=== PATIENT | female | born 1945 | race Caucasian/White ===

== ENCOUNTER → 2017-11-23 | Outpatient (CLI) | payer MEDICARE, BC, OTHER ==
[~2017-11-23] MED LIST: ACCUPRIL10 MG PO; AMITRIPTYLINE25 MG PO; GABAPENTIN300 M1 PO; HCTZ 25MG25 MG PO; MASON NATURAL2000 IU PO; METANX 2.8 MG-21 TA1 PO; METFORMIN500 MG PO; MICRO-K 1010 MEQ PO; NORVASC 10MG10 MG PO; OYSCO 500500 M1 PO; PARLODEL2.5 MG PO; PREMARIN 0.60.625 MG PO; PRILOSEC 20MG20 MG PO; ROBINUL1 MG PO; SYNTHROID0.075 MG PO
== END ==
LOC: MC.RAD 09:14
DX: Z12.31 Encounter for screening mammogram for malignant neoplasm of breast (principal)

== ENCOUNTER → 2019-04-11 | Outpatient (CLI) | payer MEDICARE, OTHER | LOC: MC.RAD 15:28 | DX: Z12.31 Encounter for screening mammogram for malignant neoplasm of breast (principal) ==

== ENCOUNTER 2021-12-27 14:50 | Emergency (ER) | payer MEDICARE, OTHER ==
[~2021-12-27] VITALS: Ht 180.3 cm; Wt 79.5 kg
[2021-12-27 15:00] VITALS: BP 133/74; TEMP 97.5
[2021-12-27 16:40] VITALS: PULSE 82
== END 2021-12-27 16:47 | disposition home or self-care (01) ==
LOC: COL.ER 14:50
DX: Z04.3 Encounter for examination and observation following other accident (principal)

== ENCOUNTER 2023-02-10 10:25 | Emergency (ER) | payer MEDICARE, OTHER ==
[~2023-02-10] VITALS: Ht 149.9 cm; Wt 77.3 kg
[2023-02-10 10:29] VITALS: TEMP 98.1
[2023-02-10 12:11] VITALS: BP 141/73; PULSE 64
== END 2023-02-10 12:35 | disposition home or self-care (01) ==
LOC: COL.ER 10:25
DX: S09.90XA Unspecified injury of head, initial encounter (principal); S51.012A Laceration without foreign body of left elbow, initial encounter; S01.01XA Laceration without foreign body of scalp, initial encounter; Z23 Encounter for immunization; W18.30XA Fall on same level, unspecified, initial encounter; W22.09XA Striking against other stationary object, initial encounter; Y92.002 Bathroom of unspecified non-institutional (private) residence as the place of occurrence of the external cause

== ENCOUNTER 2023-12-10 14:50 | Emergency (ER) | payer MEDICARE, OTHER ==
[~2023-12-10] VITALS: Ht 149.9 cm; Wt 78.2 kg
[2023-12-10 14:57] VITALS: TEMP 98.5
[2023-12-10 16:00] LABS: BASO # 0.1 K/mm3 (0.0-0.2); BASO % 0.5 % (0.0-2.0); EOS # 0.2 K/mm3 (0.0-0.7); EOS % 1.8 % (0.0-4.0); GRAN # 5.8 K/mm3 (1.4-6.5); GRAN % 63.2 % (42.2-75.2); HEMATOCRIT 33.6 % (37.0-47.0); HEMOGLOBIN 11.6 g/dl (12.5-16.0); LYMPH # 2.6 K/mm3 (1.2-3.4); LYMPH % 28.2 % (20.0-51.0); MEAN CELL VOLUME 91 fl (80.0-100.0); MEAN CORPUSCULAR HEMOGLOBIN 31 pg (27-31); MEAN CORPUSCULAR HGB CONC 35 g/dl (33.0-37.0); MEAN PLATELET VOLUME 9.4 fl (7.4-10.4); MONO # 0.6 K/mm3 (0.1-0.6); PLATELET COUNT 225 K/mm3 (130-400); RED BLOOD COUNT 3.69 M/mm3 (4.10-5.30); REDCELL DISTRIBUTION WIDTH-CV 12.4 % (11.5-14.5)
[2023-12-10 16:19] LABS: ALBUMIN 3.5 g/dL (3.4-4.8); CALCIUM 9.6 mg/dL (8.4-10.2); CREATININE, serum 0.93 mg/dL (0.57-1.11); POTASSIUM 4.1 mEq/L (3.5-4.5); TOTAL PROTEIN 6.6 g/dl (6.2-8.1)
[2023-12-10 16:25] LABS: TROPONIN-I 0.015 ng/mL (0.00-0.033)
[2023-12-10 16:27] LABS: BILIRUBIN,TOTAL 0.4 mg/dL (0.2-1.2)
[2023-12-10] MEDS ORDERED: LASIX 20MG TABL20 MG PO (17:26)
[2023-12-10] MEDS ORDERED: Furosemide 40 MG/4 ML VIAL IV ONE (17:30)
[2023-12-10 17:44] VITALS: BP 176/85; PULSE 73
== END 2023-12-10 17:44 | disposition home or self-care (01) ==
LOC: COL.ER 14:50
PROVIDERS: Physician Assistant
DX: R60.0 Localized edema (principal)
CPT/HCPCS: J1940